=== PATIENT | female | born 1975 | race Caucasian/White ===

== ENCOUNTER 2023-04-02 12:13 | Day surgery (SDC) | payer MEDICARE ==
[2023-04-02] MEDS ORDERED: Sodium Chloride 0.9(Preservative Free) 10 ML IJ ONE (12:14)
[2023-04-02] MEDS ORDERED: Depo-Medrol 40 MG/ML IM ONE (12:14)
[2023-04-02] MEDS ORDERED: DIPRIVAN 200 MG/20 ML IV ONE (14:10)
--- NOTE | 2023-04-02 15:09 | XRAY ---
Indication: Caudal MARLON. Intraoperative fluoroscopy provided for 34 seconds. 3 digital spot image submitted for interpretation demonstrates caudal needle tip projecting mid sacrum. Small amount of contrast injected for needle tip placement. Correlate with intraoperative findings/report. Incidental 2 transverse screws traverse right SI joint.
[2023-04-02] MEDS ORDERED: Lactated Ringers 1,000 ML IV ONE (16:17)
--- NOTE | 2023-04-02 16:27 | XRAY ---
34 seconds of fluoroscopy was used in surgery for a caudal MARLON.
== END 2023-04-02 14:38 | disposition home or self-care (01) ==
LOC: SDC-PAIN 12:13
PROVIDERS: ATTEND Psychiatry & Neurology Pain Medicine
DX: M54.16 Radiculopathy, lumbar region (principal); Z79.899 Other long term (current) drug therapy
CPT/HCPCS: 62323; 72220; 77003; J1030; J2704; Q9966

== ENCOUNTER 2024-01-21 09:00 | Day surgery (SDC) | payer MEDICARE ==
[2024-01-21] MEDS ORDERED: BUPIVACAINE 0.5% VIAL IJ ONE (09:01)
[2024-01-21] MEDS ORDERED: Depo-Medrol 40 MG/ML IM ONE (09:01)
[2024-01-21] MEDS ORDERED: DIPRIVAN 200 MG/20 ML IV ONE (10:52)
[2024-01-21] MEDS ORDERED: Lactated Ringers 1,000 ML IV ONE (11:42)
--- NOTE | 2024-01-21 11:42 | XRAY ---
Indication: Left hip injection. Intraoperative fluoroscopy provided for 13 seconds. Single digital spot image submitted for interpretation demonstrates needle tip projecting lateral to left femur neck. Small amount of contrast injected for needle tip placement. Correlate with intraoperative findings/report.
--- NOTE | 2024-01-21 11:44 | XRAY ---
13 seconds of fluoroscopy was used in surgery for a left intra-articular hip injection.
== END 2024-01-21 11:30 | disposition home or self-care (01) ==
LOC: SDC-PAIN 09:00
PROVIDERS: ATTEND Psychiatry & Neurology Pain Medicine
DX: M16.12 Unilateral primary osteoarthritis, left hip (principal)
CPT/HCPCS: 20610; 73501; 77002; 77003; J1030; J2704; Q9966

== ENCOUNTER 2024-03-24 10:56 | Day surgery (SDC) | payer MEDICARE ==
[2024-03-24] MEDS ORDERED: LIDOCAINE HCL 1% 50 MG/5 ML VL PF IJ ONE (10:57)
[2024-03-24] MEDS ORDERED: Decadron 4 MG INJ IV ONE (10:57)
[2024-03-24] MEDS ORDERED: DIPRIVAN 200 MG/20 ML IV ONE (12:31)
[2024-03-24] MEDS ORDERED: Lactated Ringers 1,000 ML IV ONE (13:10)
--- NOTE | 2024-03-24 15:27 | XRAY ---
Indication: Left piriformis injection. Intraoperative fluoroscopy provided for 16 seconds. 2 digital spot images submitted for interpretation demonstrates posterior needle tip projecting over the left piriformis. Small amount of contrast injected for needle tip placement. Correlate with intraoperative findings/report. Incidental left SI joint fusion hardware
--- NOTE | 2024-03-24 15:35 | XRAY ---
16 seconds of fluoroscopy was used in surgery for a left piriformis injection.
== END 2024-03-24 13:00 | disposition home or self-care (01) ==
LOC: SDC-PAIN 10:56
PROVIDERS: ATTEND Psychiatry & Neurology Pain Medicine
DX: M79.18 Myalgia, other site (principal)
CPT/HCPCS: 20552; 72170; 77002; J1100; J2001; J2704; Q9966